=== PATIENT | male | born 1960 | race Caucasian/White ===

== ENCOUNTER → 2021-05-30 14:39 | Outpatient (BNVA) | payer MEDICARE, OTHER, SELFPAY | PROVIDERS: PCP Nurse Practitioner Adult Health; Visit Provider Internal Medicine | DX: M48.062 Spinal stenosis, lumbar region with neurogenic claudication (principal); M54.2 Cervicalgia; M54.9 Dorsalgia, unspecified; M54.51 Vertebrogenic low back pain; M25.572 Pain in left ankle and joints of left foot; G89.4 Chronic pain syndrome; G43.909 Migraine, unspecified, not intractable, without status migrainosus | CPT/HCPCS: 99202 ==

== ENCOUNTER → 2021-06-20 13:46 | Outpatient (BNVA) | payer MEDICARE, OTHER, SELFPAY | PROVIDERS: PCP Nurse Practitioner Adult Health; Visit Provider Internal Medicine | DX: M54.51 Vertebrogenic low back pain (principal); M48.062 Spinal stenosis, lumbar region with neurogenic claudication; G89.4 Chronic pain syndrome | CPT/HCPCS: Q3014 ==

== ENCOUNTER 2021-07-27 13:19 | Day surgery (SDC) | payer MEDICARE, OTHER, SELFPAY ==
[2021-07-21 15:13] VITALS: BMI 43.7
[2021-07-25 09:31] VITALS: BMI 43.5
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
[2021-07-27] VITALS (9 sets, daily range): BP systolic 121–144; BP diastolic 51–85; PULSE 75–99; RESP 16–20; TEMP 36.2–37.2; O2SAT 92–96
--- NOTE | ~2021-07-27 | FL_ITS ---
EXAMINATION: XR FLUOROSCOPY WITH IMAGES CLINICAL INFORMATION: MILD COMPARISON: None. TECHNIQUE: Fluoroscopy performed by Dr. Hair Minor Fluoroscopy time: 9.6 minutes DAP: 40.2 [id number] Images: 2 FINDINGS: Imaging demonstrates a cannula overlying region of the lumbar spine. Due to the coned nature of the film, the exact site cannot be specified. FL/FL guidance in OR IMPRESSION: Fluoroscopy and spot films provided to Dr. Hair Minor during a pain management procedure.
--- NOTE | 2021-07-27 13:33 | MHC.SHP ---
Pre-Procedural Eval Section A Date of Service: 07/27/21 The patient is an INPATIENT: No Changes since office visit: Yes Patient answered all questions The History & Physical has been completed within 30 days and I have reviewed it.: Yes Section B Chief Complaint: Neurogenic Claudication due to lumbar stenosis Relevant Family History (Specify if Yes): No Relevant Social History: None Present Medications: see Short Stay Collaborative assessment Medical History: No relevant PMH History of Previous Operations: No relevant previous surgery Allergies: Allergies Allergy/AdvReac Type Severity Reaction Status Date / Time cefuroxime [From Ceftin] AdvReac Severe hives Verified 07/27/21 13:04 Penicillins AdvReac Severe hives Verified 07/27/21 13:04 pregabalin [From Lyrica] AdvReac Severe leg Verified 07/27/21 13:04 swelling nystatin AdvReac Intermediate itch Verified 07/27/21 13:04 povidone-iodine AdvReac Intermediate skin Verified 07/27/21 13:04 [From Betadine] reaction environmental allergies Allergy Unknown Uncoded 07/22/21 15:16 Plan Diagnosis/Plan: Unchanged I have reviewed the history and physical and performed a pertinent physical examination on my patient. No changes have occurred unless specified.
--- NOTE | 2021-07-27 13:36 | PM.OP ---
Brief Operative Note Date of Service: 07/27/21 Pre-op diagnosis: Lumbar spinal stenosis with neurogenic claudication Post-op diagnosis: same Procedure: Minimally invasive lumbar decompression L4-L5 level, bilateral Surgeon: Hair Minor MD Anesthesia: MAC Was an Conservation Scientist used for this Procedure?: No Estimated blood loss (mL): 10 Pathology: none sent Condition: stable Disposition: PACU
--- NOTE | 2021-07-27 13:37 | W.PM.OPN ---
Operative Note Operative Note Date of Service: 07/27/21 Narrative: Minimally Invasive Lumbar Decompression, Bilateral, L-4/5 After informed consent, patient was brought to the operating room. The patient was placed in the prone position in the fluoroscopy suite with blankets (bolster) under the hips to assist with reversing lordosis of the spine. Following IV sedation and antibiotic administration, the patient was prepped and draped in my usual standard fashion. Time-out was performed to confirm site and level of intervention. 15 mL of lidocaine 1% with epinephrine mixed with bupivacaine 0.25% were used to anesthetize the skin and deep facial planes after topographical landmarks were identified. Procedural safety barriers were established by utilizing a contralateral oblique (JOHANA) view to visualize the ventral interlaminar line (VILL). Instruments remained posterior to the VILL during the percutaneous lumbar decompression procedure. A small midline incision was made with a sharp scalpel blade, and a trocar with portal was inserted percutaneously under fluoroscopic guidance to contact the lamina indicated. The trocar and portal were tugged to the right side to approach the right interlaminar space first. A bone-sculpting rongeur was inserted to remove adequate amounts of lamina (laminotomy) from the superior surface of the inferior operative lamina site and from the inferior aspect of the lamina above it. The laminotomy created a passage for the tissue sculpting instrument used in debulking the ligamentum flavum. The ligamentum flavum was debulked until diminished returns. A similar procedure was performed on the contralateral side. There were no complications or difficulties noted with these procedures. Upon completion of the procedure, instruments were removed, hemostasis was achieved by direct pressure, and wound closure was performed with dermabond and steristrips. The patient tolerated the procedure well. Upon transferring the patient to the recovery room, the patient?s vital signs remained stable and without any neurologic deficits. The patient was discharged with instructions to rest, continue with ice, and to demonstrate progressive mobility. The patient was given a follow-up exam time and date along with instructions and contact information for any questions or concerns. The patient is to be followed up in the office for further evaluation and treatment, as deemed appropriate and necessary, and for any concerns regarding the procedure.
[2021-07-27] MEDS: fentaNYL citrate/PF 100 MCG/2 ML VIAL 25 MCG IVPUSH ×2 (15:21→15:34)
[2021-07-27] MEDS: oxyCODONE HCl Immed Release 5 MG TABLET 10 MG PO (15:21)
== END 2021-07-27 17:14 | disposition home or self-care (01) ==
PROVIDERS: PCP Nurse Practitioner Adult Health; Visit Provider Internal Medicine
PROC: (CPT 0275T; principal; 2021-07-27 13:30)
DX: M48.062 Spinal stenosis, lumbar region with neurogenic claudication (principal); Z00.6 Encounter for examination for normal comparison and control in clinical research program; F31.9 Bipolar disorder, unspecified; J45.909 Unspecified asthma, uncomplicated; G89.4 Chronic pain syndrome; K21.9 Gastro-esophageal reflux disease without esophagitis; M54.51 Vertebrogenic low back pain; G47.00 Insomnia, unspecified; G43.909 Migraine, unspecified, not intractable, without status migrainosus; F41.9 Anxiety disorder, unspecified; M54.2 Cervicalgia; M25.572 Pain in left ankle and joints of left foot; Z79.899 Other long term (current) drug therapy; Z79.891 Long term (current) use of opiate analgesic
CPT/HCPCS: 0275T; C1889; J0131; J2250; J3010

== ENCOUNTER → 2021-08-19 13:29 | Outpatient (BNVA) | payer MEDICARE, OTHER, SELFPAY | PROVIDERS: PCP Nurse Practitioner Adult Health; Visit Provider Nurse Practitioner Family | DX: M48.062 Spinal stenosis, lumbar region with neurogenic claudication (principal); M54.51 Vertebrogenic low back pain; G89.4 Chronic pain syndrome; Z98.890 Other specified postprocedural states | CPT/HCPCS: 99212 ==

== ENCOUNTER → 2021-11-07 13:46 | Outpatient (BNVA) | payer MEDICARE, OTHER, SELFPAY | PROVIDERS: PCP Nurse Practitioner Adult Health; Visit Provider Internal Medicine | DX: M47.816 Spondylosis without myelopathy or radiculopathy, lumbar region (principal) | CPT/HCPCS: 99212 ==